=== PATIENT | female | born 1950 | race Caucasian/White ===

== ENCOUNTER 2018-03-25 10:18 | Emergency (ER) | payer MEDICARE, OTHER ==
[2018-03-25] MEDS ORDERED: Metoprolol Tartrate 50 MG Tab PO ONE (11:09)
[2018-03-25] MEDS ORDERED: Aspirin 81 MG Tab.Chew PO ONE (11:10)
--- NOTE | 2018-03-25 11:15 | EDM.PDOC ---
ED HPI GENERAL MEDICAL PROBLEM - General Chief Complaint: Chest Pain Stated Complaint: WHEN WALKING WILL HAVE CHEST PAIN Time Seen by Provider: 03/25/18 11:05 Source of Information: Reports: Patient History Limitations: Reports: Other (no old records) - History of Present Illness INITIAL COMMENTS - FREE TEXT/NARRATIVE: 68 yo female here from [place] presents with exertional CP just since arriving here. Most noticeable yesterday and again today. L sided CP with radiation down her L arm. Gets relief with rest. No other associated sx's. Has a pHx of a AAA, but no CAD. Onset Date: 03/24/18 Duration: Intermittent, Waxing/Waning Location: Reports: Chest, Upper Extremity, Left Quality: Reports: Pressure Severity: Moderate Improves with: Reports: Rest Worsens with: Reports: Movement (exertion) Context: Reports: Other (unknown risk factors other than age, HTN) Associated Symptoms: Reports: Chest Pain. 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) - Related Data Allergies Allergy/AdvReac Type Severity Reaction Status Date / Time No Known Allergies Allergy Verified 03/25/18 10:55 Home Meds: Home Meds Levothyroxine 112 mcg PO ACBREAKFAST 03/25/18 [History] Lisinopril/Hydrochlorothiazide [Lisinopril-Hctz 10-12.5 mg Tab] 10 mg PO DAILY 03/25/18 [History] Multivitamin [Multivitamins] 1 each PO DAILY 03/25/18 [History] diphenhydrAMINE HCl [Benadryl] 25 mg PO BEDTIME 03/25/18 [History] ED ROS GENERAL - Review of Systems Review Of Systems: See Below Constitutional: Reports: No Symptoms HEENT: Reports: No Symptoms Respiratory: Reports: No Symptoms Cardiovascular: Reports: Chest Pain Endocrine: Reports: No Symptoms GI/Abdominal: Reports: No Symptoms : Reports: No Symptoms Musculoskeletal: Reports: No Symptoms Skin: Reports: No Symptoms Neurological: Reports: No Symptoms ED EXAM, GENERAL - Physical Exam Exam: See Below Exam Limited By: No Limitations General Appearance: Alert, WD/WN, No Apparent Distress Eye Exam: Bilateral Eye: EOMI Ears: Normal External Exam, Normal Canal, Hearing Grossly Normal Ear Exam: Bilateral Ear: Auricle Normal, Canal Normal Nose: Normal Inspection, Normal Mucosa, No Blood Throat/Mouth: Normal Inspection, Normal Lips, Normal Oropharynx, Normal Voice, No Airway Compromise Head: Atraumatic, Normocephalic Neck: Normal Inspection, Supple Respiratory/Chest: No Respiratory Distress, Lungs Clear, Normal Breath Sounds, No Accessory Muscle Use Cardiovascular: Regular Rate, Rhythm, No Edema GI/Abdominal: Normal Bowel Sounds, Soft, Non-Tender Back Exam: Normal Inspection Extremities: Normal Inspection, Normal Range of Motion, Non-Tender, No Pedal Edema Neurological: Alert, Oriented, CN II-XII Intact, Normal Cognition, No Motor/ Sensory Deficits, Sensory/Motor Deficit Psychiatric: Normal Affect Skin Exam: Warm, Dry, Intact, Normal Color, No Rash Lymphatic: No Adenopathy EKG INTERPRETATION EKG Date: 03/25/18 Time: 10:25 Rhythm: NSR Rate (Beats/Min): 82 Martha: Normal P-Wave: Present QRS: Normal ST-T: Depressed (Very slight in V4-V6) QT: Normal Comparison: Change From Previous EKG EKG Interpretation Comments: Rate increase from 59-82 since 05/[address] depression V4-V6 is new. Course - Vital Signs Last Recorded V/S: Last Vital Signs Temp 36.2 C 03/25/18 10:56 Pulse 80 03/25/18 11:26 Resp 17 03/25/18 10:56 BP 152/76 H 03/25/18 11:26 Pulse Ox 97 03/25/18 10:56 - Orders/Labs/Meds Orders: Active Orders 24 hr Category Date Time Status Cardiac Monitoring [RC] .As Directed Care 03/25/18 10:35 Active EKG Documentation Completion [RC] ASDIRECTED Care 03/25/18 10:35 Active Sodium Chloride 0.9% [Saline Flush] Med 03/25/18 11:59 Active 10 ml FLUSH ASDIRECTED PRN Saline Lock Insert [OM.PC] Routine Oth 03/25/18 11:59 Ordered EKG 12 Lead [EK] Routine Ther 03/25/18 10:35 Ordered Medication Orders Sodium Chloride (Saline Flush) 10 ml FLUSH ASDIRECTED PRN PRN Reason: Keep Vein Open Labs: Laboratory Tests 03/25/18 03/25/18 Range/Units 10:45 10:45 WBC 4.9 (4.5-11.0) K/uL RBC 4.40 (3.30-5.50) M/uL Hgb 13.4 (12.0-15.0) g/dL Hct 39.6 (36.0-48.0) % MCV 90 (80-98) fL MCH 31 (27-31) pg MCHC 34 (32-36) % Plt Count 209 (150-400) K/uL Sodium 143 (140-148) mmol/L Potassium 3.7 (3.6-5.2) mmol/L Chloride 107 (100-108) mmol/L Carbon Dioxide 27 (21-32) mmol/L Anion Gap 9.1 (5.0-14.0) mmol/L BUN 22 H (7-18) mg/dL Creatinine 1.1 H (0.6-1.0) mg/dL Est Cr Clr Drug Dosing 38.18 mL/min Estimated GFR (MDRD) 49 L (>60) Glucose 127 H (74-106) mg/dL Calcium 9.4 (8.5-10.1) mg/dL Troponin I < 0.017 (0.000-0.056) ng/mL Meds: Medications Generic Name Dose Route Start Last Admin Trade Name Freq PRN Reason Stop Dose Admin Sodium Chloride 10 ml 03/25/18 11:59 Saline Flush FLUSH ASDIRECTED PRN Keep Vein Open Discontinued Medications Generic Name Dose Route Start Last Admin Trade Name Freq PRN Reason Stop Dose Admin Aspirin 324 mg 03/25/18 11:10 03/25/18 11:25 Aspirin PO 03/25/18 11:11 324 mg ONETIME ONE Administration Metoprolol Tartrate 50 mg 03/25/18 11:09 03/25/18 11:26 Lopressor PO 03/25/18 11:10 50 mg ONETIME ONE Administration Departure - Departure Time of Disposition: 12:55 Disposition: DC/Tfer to Acute Hospital 02 Reason for Transfer *Q: Other Condition: Fair Clinical Impression: Exertional angina HTN (hypertension) Qualifiers: Hypertension type: unspecified Qualified Code(s): I10 - Essential (primary) hypertension Referrals: PCP,None [Primary Care Provider] - Forms: ED Department Discharge - My Orders Last 24 Hours: My Active Orders 03/25/18 10:35 Cardiac Monitoring [RC] .As Directed EKG Documentation Completion [RC] ASDIRECTED EKG 12 Lead [EK] Routine 03/25/18 11:59 Sodium Chloride 0.9% [Saline Flush] 10 ml FLUSH ASDIRECTED PRN Saline Lock Insert [OM.PC] Routine - Assessment/Plan Last 24 Hours: My Active Orders 03/25/18 10:35 Cardiac Monitoring [RC] .As Directed EKG Documentation Completion [RC] ASDIRECTED EKG 12 Lead [EK] Routine 03/25/18 11:59 Sodium Chloride 0.9% [Saline Flush] 10 ml FLUSH ASDIRECTED PRN Saline Lock Insert [OM.PC] Routine
[2018-03-25] MEDS ORDERED: Sodium Chloride 0.9% 10 ML Syringe FLUSH PRN (11:59)
== END 2018-03-25 13:25 ==
LOC: JP.ED 10:18
DX: I20.9 Angina pectoris, unspecified (principal); I10 Essential (primary) hypertension; Z79.899 Other long term (current) drug therapy
CPT/HCPCS: 36415; 80048; 84484; 85027; 93005; 99285; A9270